=== PATIENT | male | born 1985 | race Caucasian/White ===

== ENCOUNTER 2023-12-16 15:11 | Emergency (ER) | payer OTHER ==
[~2023-12-16] VITALS: Ht 182.9 cm; Wt 95.0 kg
[2023-12-16 15:22] VITALS: BP 136/81
[2023-12-16] MEDS ORDERED: Ibuprofen 600 MG TAB PO ONE (15:36)
[2023-12-16] MEDS ORDERED: Acetaminophen 500 MG TAB PO ONE (15:36)
[2023-12-16 18:51] VITALS: PULSE 103; TEMP 99.1
== END 2023-12-16 19:07 | disposition home or self-care (01) ==
LOC: COL.ER 15:11
DX: J06.9 Acute upper respiratory infection, unspecified (principal)